=== PATIENT | female | born 1955 | race Caucasian/White ===

== ENCOUNTER 2017-12-26 14:59 | Emergency (ER) | payer MEDICARE, OTHER, SELFPAY ==
[2017-12-26] VITALS (8 sets, daily range): BP systolic 119–148; BP diastolic 67–89; PULSE 76–100; RESP 14–22; TEMP 37.1; O2SAT 97–100; BMI 23.5
--- NOTE | 2017-12-26 15:05 | ED.SOB ---
HPI - SOB/Dyspnea General Chief Complaint: Shortness of Breath/Dyspnea Stated Complaint: sob,swelling in lower limbs Time Seen by Provider: 12/26/17 15:05 Source: patient Mode of arrival: wheelchair Limitations: no limitations History of Present Illness 62-year-old female with history of paraplegia and smoking presents to the emergency department for evaluation of bilateral lower extremity swelling with shortness of breath. She often has trouble swelling in her lower extremities but usually experiences near total relief with diuretics and elevation of her lower extremities. When this did not help she followed up with her primary care provider whom ordered some outpatient labs and noted a positive D-dimer. Leg swelling without injury in the setting of an elevated time and shortness of breath prompted his transfer to the emergency department for evaluation of possible PE versus other. She denies chest pain and is not dizzy nor weak or lightheaded. She denies any recent injury, fever or chills, long-distance travel or history of clots. She does not take any anticoagulants MD Complaint: shortness of breath Onset (ago): day(s) Severity: mild Consistency/Duration: constant Relieving factors: nothing Exacerbating factors: nothing Known history of: COPD Related Data Home Medications Medication Instructions Recorded Confirmed furosemide [Lasix] 20 mg PO QDAY #0 11/19/16 gabapentin [Neurontin] 300 mg PO PRN PRN #0 11/19/16 potassium chloride [K-Tab] 10 meq PO QDAY #0 11/19/16 [HERBAL LAXATIVE] PRN #0 11/29/16 acetaminophen [Tylenol Extra 500 mg PO Q6HP PRN #0 11/29/16 Strength] loratadine 10 mg PO QDAY #30 tab 01/16/17 [PROBIOTIC] QDAY #0 02/12/17 multivitamin [Multiple Vitamins] 1 tab PO QDAY #0 02/12/17 Previous Rx's Medication Instructions Recorded mupirocin 1 bernard TOPICAL BID #22 gm 11/19/16 buspirone 7.5 mg PO BID #60 tab 12/25/16 diclofenac sodium [Voltaren] 1 bernard TOPICAL SEE INSTRUCTIONS 12/25/16 #100 gm sumatriptan succinate [Imitrex] 50 mg OR PRN PRN #9 tab 02/12/17 Allergies Allergy/AdvReac Type Severity Reaction Status Date / Time amoxicillin [AMOXICILLIN] Allergy Unknown COLILITS Verified 12/26/17 15:03 (MAY BE AMPICILLIN) sertraline AdvReac Severe Depression Verified 12/26/17 15:34 Tricyclic Compounds AdvReac Severe Depression Verified 12/26/17 15:34 Review of Systems Review of Systems All systems reviewed & are unremarkable except as noted in HPI and below Constitutional Denies chills, Denies fever(s), Denies lethargy and Denies weakness Eyes Denies change in vision, Denies eye discharge, Denies irritation and Denies loss of vision ENT Ears, Nose, Mouth, and Throat: Denies change in voice, Denies neck pain and Denies sore throat Cardiovascular Denies chest pain, Denies irregular heart rhythm, Denies lightheadedness, Denies palpitations, Reports dyspnea, Denies dyspnea on exertion and Denies orthopnea Respiratory Denies cough, Reports dyspnea, Denies dyspnea on exertion and Denies wheezing Gastrointestinal Gastrointestinal: Denies abdominal pain, Denies change in bowel habits, Denies diarrhea, Denies nausea and Denies vomiting Genitourinary Denies hematuria, Denies flank pain, Denies urinary incontinence and Denies urinary urgency Musculoskeletal Denies neck pain Comments: Swelling of bilateral lower extremities Integumentary/Breasts Denies pruritus, Denies erythema, Denies rash and Denies wounds Neurologic Denies confusion, Denies loss of vision and Denies weakness Psychiatric Denies anxiety, Denies confusion, Denies depression, Denies homicidal ideation and Denies suicidal ideation Endocrine Denies palpitations Hematologic/Lymphatic Denies easy bruising Allergic/Immunologic Denies wheezing PFSH Family History Sister Age: 73 Cancer Hypertension High cholesterol Stroke Social History Smoking Status: Current some day smoker Exam Narrative Exam Narrative: Pleasant 62-year-old female in mild distress Initial Vital Signs Initial Vital Signs: Vital Signs Temperature 98.7 F 12/26/17 15:04 Pulse Rate 98 H 12/26/17 15:04 Respiratory Rate 20 12/26/17 15:04 Blood Pressure 137/86 H 12/26/17 15:04 Pulse Oximetry 100 12/26/17 15:04 Const General: cooperative, well developed and in distress Nutritional Appearance: well nourished Orientation: alert, awake, oriented x3 and not confused HENMT Head: normocephalic and atraumatic Ears: external ears normal and TM's normal bilaterally Nose: external nose normal and No nasal discharge Face and sinus: sinuses nontender, face symmetric, no sinus tenderness and No dry mucous membranes Mouth: oral mucosae normal and moist mucous membranes Teeth and gingiva: dentition normal Throat: tonsils normal and uvula midline Neck Neck: normal visual inspection, trachea midline, No lymphadenopathy, No midline deformity and No JVD Lymphatic: No lymphedema Resp Effort & Inspection: normal respiratory effort, able to speak in complete sentences, no respiratory distress and no use of accessory muscles Auscultation: diminished lung sounds, no rales, no rhonchi and wheezes Cardio Rate: regular rate Rhythm: regular rhythm Heart Sounds: no click, no gallops, no murmurs and no rubs Pulses: normal peripheral pulses Back/Spine/Pelvis Back: No CVA tenderness Cervical Spine: cervical ROM normal and No pain with cervical ROM Thoracic/Lumbar Spine: thoracic and lumbar spine normal to inspection Skin General: no rashes or lesions noted, No jaundice and No petechiae Neuro Other: Bilateral lower extremity paraplegia at baseline Extrem Right lower extremity: lower leg Details: erythema and pitting edema Left lower extremity: lower leg Details: erythema and pitting edema Psych Appearance: well kempt Mental Status: mental status grossly normal Attitude: cooperative Thought Content: normal and suicidality Judgment: judgment good Course Orders Ordered: ED Orders 12/26/17 15:19 Basic Metabolic Panel Stat C-Reactive Protein Quant Stat Complete Blood Count AUTO DIFF Stat Erythrocyte Sedimentation Rate Stat Procalcitonin Stat 12/26/17 15:22 CT angio chest PE protocol Stat Discontinued Medications Levalbuterol HCl (Xopenex) 1.25 mg INH NOW ONE Stop: 12/26/17 15:26 Last Admin: 12/26/17 15:35 Dose: 1.25 mg Vital Signs - 8 hr 12/26/17 15:04 12/26/17 15:32 12/26/17 15:36 Temperature 98.7 F Pulse Rate 98 H 100 H Respiratory Rate 20 14 Blood Pressure 137/86 H Blood Pressure [Left Arm] 148/89 H Pulse Oximetry 100 100 97 MDM - SOB/Dyspnea Lab Data Result diagrams: 12/26/17 15:19 12/26/17 15:19 Lab Results 12/26/17 12/26/17 12/26/17 Range/Units 15:19 15:19 15:19 WBC 10.5 (4.5-11.0) X10^3/uL RBC 4.55 (4.0-5.2) X10^6/uL Hgb 13.9 (12.0-16.0) g/dL Hct 41.2 (36-46) % MCV 90.5 (80-100) fL MCH 30.5 (26-34) PG MCHC 33.7 (30-36) % RDW 14.8 (11.6-14.8) % Plt Count 272 (150-400) X10^3/uL Neut % (Auto) 53.2 (50-75) % Lymph % (Auto) 37.7 (25-40) % [place] % (Auto) 6.0 (3-14) % Eos % (Auto) 2.3 (2-4) % Baso % (Auto) 0.8 (0-2) % Neut # (Auto) 5600 (8340-1291) /uL ESR 18 (0-20) MM/HR Sodium 144 (137-145) mmol/L Potassium 3.4 (3.4-5.1) mmol/L Chloride 100 (98-107) mmol/L Carbon Dioxide 31 (22-32) mmol/L BUN 16 (7-17) mg/dL Creatinine 0.50 L (0.52-1.04) mg/dL Estimated GFR > 60.0 (>60) mL/min BUN/Creatinine Ratio 32.0 H (6-22) Glucose 149 H (80-110) mg/dL Calcium 9.7 (8.4-10.2) mg/dL C-Reactive Protein 1.0 (<1.0) mg/dL Procalcitonin < 0.05 (<0.5) ng/mL Discharge Plan Departure Prescriptions: No Action potassium chloride [K-Tab] 10 MEQ tablet extended release 10 meq PO QDAY Qty: 0 RF: 0 furosemide [Lasix] 20 MG tablet 20 mg PO QDAY Qty: 0 RF: 0 gabapentin [Neurontin] 300 MG capsule 300 mg PO PRN PRNQty: 0 RF: 0 mupirocin 2 % ointment 1 bernard Topical BID Qty: 22 RF: 0 acetaminophen [Tylenol Extra Strength] 500 MG tablet 500 mg PO Q6HP PRNQty: 0 RF: 0 [HERBAL LAXATIVE] PRNQty: 0 RF: 0 buspirone 7.5 MG tablet 7.5 mg PO BID Qty: 60 RF: 1 diclofenac sodium [Voltaren] 1 % gel 1 bernard Topical SEE INSTRUCTIONS Qty: 100 RF: 1 loratadine 10 MG tablet 10 mg PO QDAY Qty: 30 RF: 0 [PROBIOTIC] QDAY Qty: 0 RF: 0 multivitamin [Multiple Vitamins] 1 EACH tablet 1 tab PO QDAY Qty: 0 RF: 0 sumatriptan succinate [Imitrex] 50 MG tablet 50 mg OR PRN PRNQty: 9 RF: 5
--- NOTE | 2017-12-26 15:22 | DI.CT.S_ITS ---
PROCEDURE: CT ANGIO CHEST PE PROTOCOL INDICATIONS: sent by PCP, LE swelling, Shortness of breath, elevated DDimer TECHNIQUE: After the administration of intravenous contrast, 2 mm thick sections acquired from the pulmonary apices to the posterior costophrenic angles. 3-dimensional maximum intensity projection (MIP) coronal and sagittal reformats were then acquired through the thorax. For radiation dose reduction, the following was used: automated exposure control, adjustment of mA and/or kV according to patient size. COMPARISON: Outside Film, CR, XR CHEST 1VW, 08/22/2016, 17:38. Outside Film, CT, CT ANGIO CHEST, 11/13/2014, 15:55. FINDINGS: Image quality: Excellent. Pulmonary arteries: Pulmonary arteries are normal in size, and demonstrate no intraluminal filling defects to suggest central pulmonary embolism. Lungs and pleura: Lungs are mildly edematous. No pleural effusions or pneumothorax. Central and peripheral airways are patent. Mediastinum: Heart size is normal, without pericardial effusion. No mediastinal or hilar adenopathy. Thoracic aorta is normal in caliber and enhancement. Esophagus is normal in caliber, with a moderate hiatal hernia behind the heart. Bones and chest wall: No suspicious bony lesions. Ribs and thoracic spine appear intact throughout. Thyroid gland appears normal where well visualized. No axillary or supraclavicular adenopathy. Abdomen: Visualized upper abdominal solid organs appear normal in the early arterial phase of enhancement. IMPRESSION: No pulmonary embolus found, no pneumonia identified but there does appear to be a mild pulmonary edema pattern, without significant cardiomegaly at this time. Moderate hiatal hernia behind the heart. Dictated by: Jerry Dubois M.D. on 12/26/2017 at 16:10 Approved by: Jerry Dubois M.D. on 12/26/2017 at 16:12
[2017-12-26 15:30] LABS: Add Manual Diff / Slide Review NO; Basophils Percent Auto 0.8 % (0-2); Eosinophils Percent Auto 2.3 % (2-4); Hematocrit 41.2 % (36-46); Hemoglobin 13.9 g/dL (12.0-16.0); Lymphocytes Percent Auto 37.7 % (25-40); Mean Corpuscular HGB Conc 33.7 % (30-36); Mean Corpuscular Hemoglobin 30.5 PG (26-34); Mean Corpuscular Volume 90.5 fL (80-100); Neutrophils Absolute Auto 5600 /uL (3000-5900); Neutrophils Percent Auto 53.2 % (50-75); Platelet Count 272 X10^3/uL (150-400); Red Blood Cell Count 4.55 X10^6/uL (4.0-5.2); Red Cell Distribution Width 14.8 % (11.6-14.8); White Blood Cell Count 10.5 X10^3/uL (4.5-11.0)
--- NOTE | 2017-12-26 15:30 | PC.NURSE ---
IV placed by Anu Lowe RN
[2017-12-26] MEDS: LEVALBUTEROL 1.25 MG/0.5 ML NEB INH (15:35)
[2017-12-26 15:40] LABS: Blood Urea Nitrogen 16 mg/dL (7-17); Calcium 9.7 mg/dL (8.4-10.2); Carbon Dioxide 31 mmol/L (22-32); Chloride 100 mmol/L (98-107); Estimated Glomerular Filt Rate > 60.0 mL/min (>60); Glucose 149 mg/dL (80-110); HEMOLYSIS < 15 (0-50); Potassium 3.4 mmol/L (3.4-5.1); Sodium 144 mmol/L (137-145)
[2017-12-26 15:52] LABS: Erythrocyte Sedimentation Rate 18 MM/HR (0-20)
[2017-12-26 15:54] LABS: Procalcitonin < 0.05 ng/mL (<0.5)
--- NOTE | 2017-12-26 16:54 | DI.US.S_ITS ---
PROCEDURE: US PERIPH VENOUS LOW EXTREM RT INDICATIONS: EDEMA; ERYTHEMA; ELEVATED D-DIMER TECHNIQUE: Real-time imaging, as well as color and pulse Doppler interrogation, were performed of the lower extremity deep veins from the inguinal ligament to the popliteal fossa. COMPARISON: None. FINDINGS: The deep veins are normally compressible, and free of intraluminal thrombus. Color and pulse Doppler demonstrate normal phasic intraluminal flow. There is normal augmentation response to distal compression maneuver. IMPRESSION: No evidence of deep venous thrombosis. Dictated by: Yonatan De Jesus M.D. on 12/26/2017 at 18:31 Approved by: Yonatan De Jesus M.D. on 12/26/2017 at 18:32
== END 2017-12-26 18:29 | disposition home or self-care (01) ==
PROVIDERS: Emergency Provider Emergency Medicine; PCP Family Medicine
DX: R60.0 Localized edema (principal)
CPT/HCPCS: 36591; 71275; 80048; 83880; 84145; 85025; 85651; 86140; 93041; 93971; 94640; 99284; 99285; J7614; Q9967

== ENCOUNTER → 2019-05-19 10:24 | Outpatient (CLI) | payer MEDICARE, OTHER, SELFPAY ==
--- NOTE | 2019-05-19 14:13 | PT.OIE ---
Current Diagnoses Paraplegia, unspecified (05/19/19) Visit Care Team Role Provider Type Ramos Al MD Primary Care Provider Physician Specialty: Family Practice Address: [address] [place] [address], [id number] Email: MAI Cody Attending Provider Non-Staff Specialty: Medical Address: [address] [place] [address], [id number] Email:
--- NOTE | 2019-05-19 14:21 | PT-OP ANOTE ---
Patient seen for wheelchair evaluation. The evaluation will be found in her paper chart and she will be discharged at this time.
== END ==
PROVIDERS: PCP Family Medicine; Visit Provider Nurse Practitioner Family
DX: G82.20 Paraplegia, unspecified (principal)
CPT/HCPCS: 97161

== ENCOUNTER 2020-02-24 20:50 | Emergency (ER) | payer MEDICARE, OTHER, SELFPAY ==
[2020-02-24 21:11] VITALS: BP 145/95; PULSE 101; RESP 16; TEMP 37.3; O2SAT 99
--- NOTE | 2020-02-24 21:42 | DI.US.S_ITS ---
PROCEDURE: US PERIPH VENOUS LOW EXTREM LT INDICATIONS: EDEMA TECHNIQUE: Real-time imaging, as well as color and pulse Doppler interrogation, were performed of the lower extremity deep veins from the inguinal ligament to the popliteal fossa. COMPARISON: None. FINDINGS: The common femoral, femoral and popliteal veins are normally compressible, and free of intraluminal thrombus. Color and pulse Doppler demonstrate normal phasic intraluminal flow. There is normal augmentation response to distal compression maneuver. IMPRESSION: No evidence of deep vein thrombosis involving the left lower extremity. Dictated by: Ronna Garnica MD, PhD on 02/25/2020 at 7:28 Approved by: Ronna Garnica MD, PhD on 02/25/2020 at 7:29
--- NOTE | 2020-02-24 21:48 | ED.EXTPRO ---
HPI - Extremity Problem General Chief complaint: Extremity Problem,Nontraumatic Stated complaint: suspected DVT left leg Time Seen by Provider: 02/24/20 21:13 Source: patient Mode of arrival: Wheelchair Limitations: no limitations History of Present Illness HPI Narrative: 64-year-old woman with T12 paraplegia for many years presents with unilateral lower extremity edema for 36 hours. She notes that she typically does have problems with lower extremity edema and it typically resolves nicely with Lasix and elevation of her legs. She has done this however the left leg continues to remain moderately elevated with pitting edema. She is having no fevers, cough, dyspnea, pain (has no sensation in the lower extremities) or other complaints at this time. Related Data Home Medications Medication Instructions Recorded Confirmed furosemide [Lasix] 20 mg PO QDAY #0 11/19/16 gabapentin [Neurontin] 300 mg PO PRN PRN #0 11/19/16 potassium chloride [K-Tab] 10 meq PO QDAY #0 11/19/16 [HERBAL LAXATIVE] PRN #0 11/29/16 acetaminophen [Tylenol Extra 500 mg PO Q6HP PRN #0 11/29/16 Strength] loratadine 10 mg PO QDAY #30 tab 01/16/17 [PROBIOTIC] QDAY #0 02/12/17 multivitamin [Multiple Vitamins] 1 tab PO QDAY #0 02/12/17 Previous Rx's Medication Instructions Recorded mupirocin 1 bernard TOPICAL BID #22 gm 11/19/16 buspirone 7.5 mg PO BID #60 tab 12/25/16 diclofenac sodium [Voltaren] 1 bernard TOPICAL SEE INSTRUCTIONS 12/25/16 #100 gm sumatriptan succinate [Imitrex] 50 mg OR PRN PRN #9 tab 02/12/17 Allergies Allergy/AdvReac Type Severity Reaction Status Date / Time amoxicillin [AMOXICILLIN] Allergy Unknown COLILITS Verified 12/26/17 15:03 (MAY BE AMPICILLIN) sertraline AdvReac Severe Depression Verified 12/26/17 15:34 Tricyclic Compounds AdvReac Severe Depression Verified 12/26/17 15:34 Review of Systems Review of Systems Narrative: Pertinent positive and negative findings as per HPI Remainder of review of systems is otherwise unremarkable for Constitutional: Fevers, chills, weakness ENT: No sore throat, neck pain, ear pain CV: Chest pain, palpitations, dyspnea on exertion Respiratory: Cough, wheeze, dyspnea GI: Nausea, vomiting, diarrhea, change in bowel habits, black or bloody stools : Dysuria, hematuria, flank pain MS: Muscle weakness, numbness, joint swelling or warmth Skin: Rashes, nonhealing lesions Neuro: Syncope, dizziness, tingling Patient History Medical History Essential hypertension (11/19/16) History of migraine (04/04/17) 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) Family History Sister Age: 75 Cancer Hypertension High cholesterol Stroke Social History Smoking Status: Current some day smoker Smoking Status: Current some day smoker alcohol intake frequency: holidays/special occasions only Substance Use Type: does not use Exam Narrative Exam Narrative: General: Alert appropriate in no acute distress, seated comfortably in her wheelchair Respiratory: Able to speak in full sentences, no obvious respiratory distress Skin: No obvious rashes, warm and dry Neurologic: Grossly intact no obvious asymmetries or abnormalities Psych, appropriate insight and affect, cooperative Extremities: Both feet are somewhat edematous, Left greater than right. Comparing calves, minimal musculature 3+ edema on the left 1+ on the right. No significant skin breakdown, erythema or other skin lesions. Initial Vital Signs Initial Vital Signs: Vital Signs Temperature 99.1 F 02/24/20 21:11 Pulse Rate 101 H 02/24/20 21:11 Respiratory Rate 16 02/24/20 21:11 Blood Pressure 145/95 H 02/24/20 21:11 Pulse Oximetry 99 02/24/20 21:11 Course Orders Ordered: ED Orders 02/24/20 21:42 US periph venous low extrem lt Stat Vital Signs Vital signs: Vital Signs - 8 hr 02/24/20 21:11 Temperature 99.1 F Pulse Rate 101 H Respiratory Rate 16 Blood Pressure 145/95 H Pulse Oximetry 99 MDM - Extremity (Nontraumatic) Imaging Data Ultrasound lower extremity: Radiologist's Impression: Ultrasound alina: no evidence of DVT MDM Narrative Medical decision making narrative: 64-year-old T12 paraplegic with unilateral leg swelling and no evidence of infection or DVT. She notes sometimes this does happen with paraplegia and she is not particularly concerned after the ultrasound has returned negative. She is safe for discharge home Discharge Plan Departure Patient Disposition: Home Clinical Impression: Unilateral edema of lower extremity Instructions: DI for Deep Vein Thrombosis Activity Restrictions/Additional Instructions: Thank you for coming over today Your ultrasound was very reassuring and there is no evidence of deep venous thrombosis today I do not have a full explanation for why one leg is more swollen than the other however I suspect that it will even itself out over the next few days. If you have worsening swelling, fevers signs of infection or chest pain or palpitations please feel free to return for additional evaluation. Prescriptions: No Action potassium chloride [K-Tab] 10 MEQ tablet extended release 10 meq PO QDAY Qty: 0 RF: 0 furosemide [Lasix] 20 MG tablet 20 mg PO QDAY Qty: 0 RF: 0 gabapentin [Neurontin] 300 MG capsule 300 mg PO PRN PRNQty: 0 RF: 0 mupirocin 2 % ointment 1 bernard Topical BID Qty: 22 RF: 0 acetaminophen [Tylenol Extra Strength] 500 MG tablet 500 mg PO Q6HP PRNQty: 0 RF: 0 [HERBAL LAXATIVE] PRNQty: 0 RF: 0 buspirone 7.5 MG tablet 7.5 mg PO BID Qty: 60 RF: 1 diclofenac sodium [Voltaren] 1 % gel 1 bernard Topical SEE INSTRUCTIONS Qty: 100 RF: 1 loratadine 10 MG tablet 10 mg PO QDAY Qty: 30 RF: 0 [PROBIOTIC] QDAY Qty: 0 RF: 0 multivitamin [Multiple Vitamins] 1 EACH tablet 1 tab PO QDAY Qty: 0 RF: 0 sumatriptan succinate [Imitrex] 50 MG tablet 50 mg OR PRN PRNQty: 9 RF: 5 Referrals: Ramos Al MD [Primary Care Provider] -
[2020-02-24 22:42] VITALS: BP 141/77; PULSE 107; RESP 22; O2SAT 98
== END 2020-02-24 22:43 | disposition home or self-care (01) ==
PROVIDERS: Emergency Provider Emergency Medicine; PCP Family Medicine; Referring Provider Family Medicine
DX: R60.0 Localized edema (principal); Z86.718 Personal history of other venous thrombosis and embolism
CPT/HCPCS: 93971; 99281; 99283

== ENCOUNTER 2020-08-16 09:28 | Day surgery (SDC) | payer MEDICARE, OTHER, SELFPAY ==
--- NOTE | 2020-08-01 12:15 | PM.PREOP ---
Pre-operative Note COVID-19 COVID-19 status: Negative Interval Note History & Physical reviewed/Exam performed by Physician: Yes Changes to H&P: No H&P completed within 30 days and has changed as indicated here:: Fasting glucose is
--- NOTE | 2020-08-15 17:12 | PM.PREOP ---
Pre-operative Note COVID-19 COVID-19 status: Negative Interval Note History & Physical reviewed/Exam performed by Physician: Yes Changes to H&P: No H&P completed within 30 days and has changed as indicated here:: States not diabetic with normal A1C and does not monitor glucose.
[2020-08-16] MEDS: PROPARACAINE 0.5% OPHTH SOL 2 DROPS EYE-OP ×2 (10:04→11:09)
[2020-08-16 10:06] VITALS: BP 159/89; PULSE 81; RESP 16; TEMP 37.4; O2SAT 97
[2020-08-16] MEDS: CATARACT EYE COMPOUND (10 DROPS/SYRINGE) 3 DROPS EYE-OP (10:33)
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
[2020-08-16] MEDS: LIDOCAINE 2% 4 ML, BUPIVACAINE 0.5% (PF) 4 ML, HYALURONIDASE 150 UNIT INJ (11:20)
[2020-08-16] MEDS: TRIAMCINOLONE 50 MG/5 ML VIAL INJ (11:34)
[2020-08-16] MEDS: HYALURONATE SODIUM 10 MG/ML SYRINGE INJ (11:34)
[2020-08-16] MEDS: ERYTHROMYCIN OPHTH 1 GM OINT 1 APPLIC EYE-RIGHT (11:34)
[2020-08-16] MEDS: CHONDROIDTIN/SOD HYALURONATE 1.05 ML SYRINGE INTRAOCULA (11:34)
[2020-08-16] MEDS: PHENYLEPHRINE/LIDOCAINE VIAL (OR) 0.2 ML EYE-OP (11:35)
[2020-08-16] MEDS: MOXIFLOXACIN INJ 5 MG/ML VIAL EYE-OP (11:35)
[2020-08-16 12:15] VITALS: BP 169/83; PULSE 70; RESP 16; TEMP 36.9; O2SAT 98
== END 2020-08-16 12:22 | disposition home or self-care (01) ==
PROVIDERS: PCP Family Medicine; Referring Provider Ophthalmology; Visit Provider Ophthalmology
PROC: (CPT 66984; principal; 2020-08-16 10:45)
DX: H25.11 Age-related nuclear cataract, right eye (principal); H52.201 Unspecified astigmatism, right eye; G82.20 Paraplegia, unspecified; R73.03 Prediabetes; G43.809 Other migraine, not intractable, without status migrainosus
CPT/HCPCS: 66984; J2704; J3301; J3470; V2787

== ENCOUNTER 2020-09-27 09:01 | Day surgery (SDC) | payer MEDICARE, OTHER, SELFPAY ==
--- NOTE | 2020-09-26 18:54 | PM.PREOP ---
Pre-operative Note COVID-19 COVID-19 status: Negative Interval Note History & Physical reviewed/Exam performed by Physician: Yes Changes to H&P: No H&P completed within 30 days and has changed as indicated here:: Paraplegic,wheelchair dependent
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
[2020-09-27] MEDS: CATARACT EYE COMPOUND (10 DROPS/SYRINGE) 3 DROPS EYE-OP (09:50)
[2020-09-27] MEDS: PROPARACAINE 0.5% OPHTH SOL 2 DROPS EYE-OP ×2 (09:50→10:48)
[2020-09-27 09:52] VITALS: BP 136/72; PULSE 78; RESP 16; TEMP 37.4; O2SAT 97; BMI 21.9
[2020-09-27 10:28] LABS: COVID19 -Nasal RAPID Negative (Negative)
[2020-09-27] MEDS: LIDOCAINE 2% 4 ML, BUPIVACAINE 0.5% (PF) 4 ML, HYALURONIDASE 150 UNIT INJ (10:51)
[2020-09-27] MEDS: CHONDROIDTIN/SOD HYALURONATE 1.05 ML SYRINGE INTRAOCULA (11:06)
[2020-09-27] MEDS: HYALURONATE SODIUM 10 MG/ML SYRINGE INJ (11:07)
[2020-09-27] MEDS: MOXIFLOXACIN INJ 5 MG/ML VIAL EYE-OP (11:07)
[2020-09-27] MEDS: ERYTHROMYCIN OPHTH 1 GM OINT 1 APPLIC EYE-LEFT (11:07)
[2020-09-27] MEDS: TRIAMCINOLONE 50 MG/5 ML VIAL INJ (11:07)
[2020-09-27] MEDS: PHENYLEPHRINE/LIDOCAINE VIAL (OR) 0.2 ML EYE-OP (11:07)
[2020-09-27] MEDS: BALANCED SALT IRRIG SOLN NO.2 500 ML, EPINEPHrine 1 MG IRR (11:08)
[2020-09-27 11:32] VITALS: BP 169/88; PULSE 73; RESP 16; TEMP 36.6; O2SAT 98
== END 2020-09-27 11:44 | disposition home or self-care (01) ==
LOC: OR 09:02
PROVIDERS: PCP Family Medicine; Referring Provider Ophthalmology; Visit Provider Ophthalmology
PROC: (CPT 66984; principal; 2020-09-27 10:45)
DX: H25.812 Combined forms of age-related cataract, left eye (principal); H52.202 Unspecified astigmatism, left eye; G82.20 Paraplegia, unspecified; Z99.3 Dependence on wheelchair; I10 Essential (primary) hypertension; G43.909 Migraine, unspecified, not intractable, without status migrainosus; F17.210 Nicotine dependence, cigarettes, uncomplicated; Z20.822 Contact with and (suspected) exposure to COVID-19
CPT/HCPCS: 66984; 87635; J0171; J2704; J3301; J3470; V2787

== ENCOUNTER → 2021-10-18 13:04 | Outpatient (CLI) | payer MEDICARE, OTHER, SELFPAY | PROVIDERS: PCP Nurse Practitioner Family; Referring Provider Nurse Practitioner Family; Visit Provider Family Medicine | DX: L89.153 Pressure ulcer of sacral region, stage 3 (principal); L89.613 Pressure ulcer of right heel, stage 3; L89.623 Pressure ulcer of left heel, stage 3; L89.314 Pressure ulcer of right buttock, stage 4; M86.651 Other chronic osteomyelitis, right thigh; R60.0 Localized edema; G82.20 Paraplegia, unspecified; I73.9 Peripheral vascular disease, unspecified; Z99.3 Dependence on wheelchair | CPT/HCPCS: 11042; 99204; 99214 ==

== ENCOUNTER → 2021-10-31 09:43 | Outpatient (CLI) | payer MEDICARE, OTHER, SELFPAY | PROVIDERS: PCP Nurse Practitioner Family; Referring Provider Nurse Practitioner Family; Visit Provider Family Medicine | DX: L89.153 Pressure ulcer of sacral region, stage 3 (principal); L89.613 Pressure ulcer of right heel, stage 3; L89.623 Pressure ulcer of left heel, stage 3; L89.314 Pressure ulcer of right buttock, stage 4; G82.20 Paraplegia, unspecified; M86.651 Other chronic osteomyelitis, right thigh; I73.9 Peripheral vascular disease, unspecified; Z99.3 Dependence on wheelchair | CPT/HCPCS: 11042; 87070; 87077; 87147; 87186; 87205; 93923; 97597; 97605; 99214 ==

== ENCOUNTER → 2021-11-07 10:59 | Outpatient (CLI) | payer MEDICARE, OTHER, SELFPAY | PROVIDERS: PCP Nurse Practitioner Family; Referring Provider Nurse Practitioner Family; Visit Provider Family Medicine | DX: L89.613 Pressure ulcer of right heel, stage 3 (principal); L89.623 Pressure ulcer of left heel, stage 3; L89.314 Pressure ulcer of right buttock, stage 4; M86.651 Other chronic osteomyelitis, right thigh; L08.89 Other specified local infections of the skin and subcutaneous tissue; B95.7 Other staphylococcus as the cause of diseases classified elsewhere; T36.8X5A Adverse effect of other systemic antibiotics, initial encounter; G82.20 Paraplegia, unspecified; I73.9 Peripheral vascular disease, unspecified; Z99.3 Dependence on wheelchair; M86.9 Osteomyelitis, unspecified; M89.15 Physeal arrest, femur; M19.09 Primary osteoarthritis, other specified site | CPT/HCPCS: 11042; 72197; 97605; 99213; 99214; A9579 ==

== ENCOUNTER → 2021-11-07 12:20 | Outpatient (CLI) | payer MEDICARE, OTHER, SELFPAY ==
--- NOTE | 2021-11-07 | DI.MRI.S_ITS ---
PROCEDURE: MR PELIS WO/W CON INDICATIONS: EVAL OSTEOMYELITIS RIGHT ISCHIUM TECHNIQUE: Noncontrast coronal T1 spin echo and STIR, sagittal T1 spin echo with fat saturation and STIR, axial T1 spin echo and T2 fast spin echo with fat saturation. After the administration of contrast, axial/sagittal/coronal T1 spin echo with fat saturation through the pelvis . COMPARISON: None. FINDINGS: Image quality: Excellent. Bones: There is marrow edema involving right pubic bone extending from posterior inferior acetabulum to ischial tuberosity at hamstring tendon origin. No fracture or dislocation is seen. No other area of abnormal marrow signal. Osteoarthritic changes are noted in bilateral sacroiliac joints, hip joints, and symphysis pubis. No evidence of avascular necrosis of femoral head. No suspicious intraosseous lesion. Subtle cortical irregularity and erosion involving posterior right pubic bone is also seen. Soft tissues: Full-thickness ulceration involving posterior aspect of upper thigh is noted with surrounding soft tissue edema and swelling. No discrete drainable fluid collection is noted. No other area of muscle or tendon signal abnormality is seen. There is no peritoneal free fluid. No abnormal bowel wall thickening. No bladder wall thickening. IMPRESSION: 1. Full-thickness ulceration involving posterior aspect of upper thigh/inferior right gluteal region with surrounding soft tissue edema suggestive of cellulitis. No discrete drainable abscess collection is identified. 2. Osteomyelitis in adjacent right inferior pubic bone as above. No pathologic fracture. 3. Osteoarthritis throughout bony pelvis. No evidence of avascular necrosis of femoral head. 4. No other muscle or tendon signal abnormality. Dictated by: Jw Crews M.D. on 11/07/2021 at 15:59 Approved by: Jw Crews M.D. on 11/07/2021 at 16:04
== END ==
PROVIDERS: PCP Nurse Practitioner Family; Referring Provider Family Medicine; Visit Provider Family Medicine
DX: M86.9 Osteomyelitis, unspecified (principal); L89.154 Pressure ulcer of sacral region, stage 4; L89.314 Pressure ulcer of right buttock, stage 4; M19.09 Primary osteoarthritis, other specified site
CPT/HCPCS: 72197; A9579

== ENCOUNTER → 2021-11-21 09:00 | Outpatient (CLI) | payer MEDICARE, OTHER, SELFPAY | PROVIDERS: PCP Nurse Practitioner Family; Referring Provider Nurse Practitioner Family; Visit Provider Family Medicine | DX: L89.314 Pressure ulcer of right buttock, stage 4 (principal); B95.7 Other staphylococcus as the cause of diseases classified elsewhere; L89.623 Pressure ulcer of left heel, stage 3; L89.613 Pressure ulcer of right heel, stage 3; G82.20 Paraplegia, unspecified; I73.9 Peripheral vascular disease, unspecified; Z74.09 Other reduced mobility; Z99.3 Dependence on wheelchair | CPT/HCPCS: 11042; 97605; 99213 ==

== ENCOUNTER → 2021-12-05 10:19 | Outpatient (CLI) | payer MEDICARE, OTHER, SELFPAY | PROVIDERS: PCP Nurse Practitioner Family; Referring Provider Nurse Practitioner Family; Visit Provider Family Medicine | DX: L89.314 Pressure ulcer of right buttock, stage 4 (principal); L08.9 Local infection of the skin and subcutaneous tissue, unspecified; L89.613 Pressure ulcer of right heel, stage 3; L89.623 Pressure ulcer of left heel, stage 3; G82.20 Paraplegia, unspecified; I73.9 Peripheral vascular disease, unspecified; Z74.09 Other reduced mobility; Z99.3 Dependence on wheelchair | CPT/HCPCS: 11042; 87070; 87075; 87077; 87147; 87186; 87205; 99212; 99213 ==

== ENCOUNTER → 2021-12-26 09:30 | Outpatient (CLI) | payer MEDICARE, OTHER, SELFPAY | PROVIDERS: PCP Nurse Practitioner Family; Referring Provider Nurse Practitioner Family; Visit Provider Family Medicine | DX: L89.314 Pressure ulcer of right buttock, stage 4 (principal); L89.623 Pressure ulcer of left heel, stage 3; G82.20 Paraplegia, unspecified; I73.9 Peripheral vascular disease, unspecified; Z74.09 Other reduced mobility; Z99.3 Dependence on wheelchair | CPT/HCPCS: 11042; 97605; 99213 ==

== ENCOUNTER → 2022-01-24 11:29 | Outpatient (CLI) | payer MEDICARE, OTHER, SELFPAY | PROVIDERS: PCP Nurse Practitioner Family; Referring Provider Nurse Practitioner Family; Visit Provider Family Medicine | DX: L89.314 Pressure ulcer of right buttock, stage 4 (principal); L89.623 Pressure ulcer of left heel, stage 3; M86.68 Other chronic osteomyelitis, other site; G82.20 Paraplegia, unspecified; I73.9 Peripheral vascular disease, unspecified; Z74.09 Other reduced mobility; Z99.3 Dependence on wheelchair | CPT/HCPCS: 11042; 99213 ==

== ENCOUNTER → 2022-07-15 08:34 | Outpatient (CLI) | payer MEDICARE, OTHER, SELFPAY ==
--- NOTE | 2022-07-15 08:36 | DI.MRI.S_ITS ---
PROCEDURE: MR PELIS WO/W CON INDICATIONS: CHRONIC OSTEOMYELITIS OF RT PELVIC REGION TECHNIQUE: Noncontrast coronal T1 spin echo and STIR, sagittal T1 spin echo with fat saturation and STIR, axial T1 spin echo and T2 fast spin echo with fat saturation. After the administration of contrast, axial/sagittal/coronal T1 spin echo with fat saturation through the bony pelvis. COMPARISON: [facility], MR, MR PELVIS WO/W CON, 11/07/2021, 12:39. FINDINGS: Image quality: Excellent. Bones: Osseous edema and enhancement are again seen within the right ischial tuberosity adjacent to the skin ulcer, consistent with osteomyelitis. Overall, the extent of T1-weighted signal abnormality as not significantly changed when compared to the MRI from 11/07/2021. No pathologic fracture is seen. Signal intensity within the remaining osseous structures is within normal limits. Metal artifact is partially imaged in the femoral shaft related to orthopedic hardware. Degenerative changes are seen in the hips and lumbar spine. Soft tissues: Full-thickness ulceration again seen in the right gluteal region extending to the depth of the ischial tuberosity. No fluid collection or abscess is seen. There is diffuse severe fatty infiltration of the musculature surrounding the hips. A Rice catheter decompresses the bladder. There is diffuse pelvic floor descent. IMPRESSION: 1. Full-thickness ulceration is again seen the right gluteal region extending to the depth of the ischial tuberosity with associated soft tissue edema and enhancement. No focal fluid collection or abscess is seen. 2. Osteomyelitis within the right ischial bone is again seen, and does not appear significantly changed in extent when compared to the MRI from 11/07/2021. No acute pathologic fracture is seen. Approved by: Cruzito Bell M.D. on 07/16/2022 at 9:20
== END ==
PROVIDERS: PCP Nurse Practitioner Family; Referring Provider Nurse Practitioner; Visit Provider Nurse Practitioner
DX: M86.651 Other chronic osteomyelitis, right thigh (principal); L98.419 Non-pressure chronic ulcer of buttock with unspecified severity
CPT/HCPCS: 72197; A9579